=== PATIENT | female | born 1970 | race Caucasian/White ===

== ENCOUNTER → 2022-02-11 | Outpatient (CLI) | payer OTHER ==
--- NOTE | 2022-02-11 14:49 | Diagnostic Imaging Report ---
INDICATION: Right wrist pain. FINDINGS: 3 views. Radiocarpal joint shows good alignment. Articulating surfaces are smooth. Carpal bones show no subluxation. There are no fractures. No evidence of osteonecrosis. IMPRESSION: Normal right wrist. Dictated by: Dictated on workstation # [id number]
== END ==
LOC: RAD FS 10:22
PROVIDERS: ATTEND Nurse Practitioner
DX: M25.531 Pain in right wrist (principal)
CPT/HCPCS: 73110